=== PATIENT | female | born 1985 ===

== ENCOUNTER 2020-05-11 16:54 | Emergency (ER) | payer MEDICAID, OTHER ==
[~2020-05-11] VITALS: Ht 162.6 cm; Wt 115.3 kg
[2020-05-11 18:06] LABS: BASOPHILS # (AUTO) 0.03 x10^3/uL (0-0.1); BASOPHILS % (AUTO) 0 % (0-1); EOSINOPHILS # (AUTO) 0.17 x10^3/uL (0-0.4); EOSINOPHILS % (AUTO) 2 % (1-7); LYMPHOCYTES # (AUTO) 1.61 x10^3/uL (1-3.4); LYMPHOCYTES % (AUTO) 16 % (22-44); MD NO; MEAN CORPUSCULAR HEMOGLOBIN 25.3 pg (27.0-34.8); MEAN CORPUSCULAR HGB CONC 32.2 g/dL (32.4-35.8); MEAN CORPUSCULAR VOLUME 78.6 fL (80-100); MEAN PLATELET VOLUME 9.3 fL (7.4-10.4); MONOCYTES # (AUTO) 0.29 x10^3/uL (0.2-0.8); MONOCYTES % (AUTO) 3 % (2-9); NEUTROPHILS # (AUTO) 8.31 x10^3/uL (1.8-6.8); NEUTROPHILS % (AUTO) 80 % (42-75); PLATELET COUNT 318 x10^3/uL (130-400); RED BLOOD COUNT 5.06 x10^6/uL (3.82-5.3)
[2020-05-11 18:15] LABS: ALANINE AMINOTRANSFERASE 21 U/L (12-78); ALBUMIN 3.6 g/dL (3.4-5.0); ANION GAP 5 mmol/L (5-15); CALCIUM 9.2 mg/dL (8.5-10.1); CHLORIDE 109 mmol/L (98-107); CREATININE 0.62 mg/dL (0.55-1.02)
[2020-05-11 18:20] LABS: ALKALINE PHOSPHATASE 75 U/L (45-117); BILIRUBIN,TOTAL 0.2 mg/dL (0.2-1.0); TOTAL PROTEIN 7.6 g/dL (6.4-8.2)
[2020-05-11 19:32] VITALS: BP 114/65
== END 2020-05-11 19:43 ==
LOC: ED 19:37
DX: R10.13 Epigastric pain (principal); R11.0 Nausea
CPT/HCPCS: 36415; 76700; 80053; 83690; 84703; 85025; 99284

== ENCOUNTER 2020-11-16 17:33 | Emergency (ER) | payer MEDICAID, OTHER ==
--- NOTE | 2020-11-16 17:52 | NUR ---
[email or web address]@[phone]
--- NOTE | 2020-11-16 18:03 | NUR ---
[email or web address]@[phone]
--- NOTE | 2020-11-16 18:15 | NUR ---
[email or web address]@[phone]
== END 2020-11-16 18:16 | disposition left against medical advice (07) ==
LOC: ED 18:10
DX: R51.9 Headache, unspecified (principal); Z53.21 Procedure and treatment not carried out due to patient leaving prior to being seen by health care provider